=== PATIENT | female | born 1975 | race Hispanic/Latino ===

== ENCOUNTER 2019-05-29 22:15 | Emergency (ER) | payer SELFPAY ==
[2019-05-29] MEDS ORDERED: Cyclobenzaprine 10 MG TAB ONE (23:00)
[2019-05-29 23:11] LABS: Bilirubin Negative (Negative); Blood, Urine Trace (Negative); Clarity Clear (Clear); Glucose, Urine (Dipstick) Negative (Negative); Leukocyte Trace (Negative); Nitrite Negative (Negative); Protein, Urine (Dipstick) Negative (Neg-Trace); Urobilinogen 0.2 mg/dL (Less than 2)
[2019-05-29 23:12] LABS: Pregnancy Test - Urine (BHCG) Negative (Negative); Pregu Control Background? CLEAR/WHITE (CLR/WHITE); Pregu Control Bar Appear? YES (CONTROL BAR)
[2019-05-29 23:13] LABS: Bacteria/HPF Rare-Few HPF (None Seen); WBC/HPF 0-3 HPF (0-3)
== END 2019-05-29 23:56 | disposition home or self-care (01) ==
LOC: NAV ERS 22:15
DX: G89.29 Other chronic pain (principal); M54.5 Low back pain
CPT/HCPCS: 81003; 81015; 81025; 87086; 99283